=== PATIENT | female | born 1935 | race Caucasian/White ===

== ENCOUNTER → 2019-10-31 16:05 | Outpatient (BNVA) | payer MEDICARE, BC, SELFPAY | PROVIDERS: Family Provider Nurse Practitioner; PCP Nurse Practitioner; Visit Provider Nurse Practitioner | DX: I10 Essential (primary) hypertension (principal); H10.9 Unspecified conjunctivitis | CPT/HCPCS: 80053; 85025 ==

== ENCOUNTER → 2020-04-10 14:51 | Outpatient (BNVA) | payer MEDICARE, BC, SELFPAY | PROVIDERS: Family Provider Nurse Practitioner; PCP Nurse Practitioner; Visit Provider Nurse Practitioner | DX: K59.01 Slow transit constipation (principal); R63.0 Anorexia; E55.9 Vitamin D deficiency, unspecified | CPT/HCPCS: 71046; 74018; 80048; 81003; 82306; 84443; 85025 ==